=== PATIENT | female | born 1960 | race Caucasian/White ===

== ENCOUNTER → 2018-05-21 | Outpatient (CLI) | payer OTHER ==
[2014-11-10 09:37] VITALS: BMI 29.4
[~2018-05-21] MED LIST: ACET-1966 PO; ATOR20TA65 PO; ESCI5TAB10 PO; ESTR-28 PO; ESTR-63 TD; IBUP800T37 PO; LEVO50TA86 PO; MULT-1335 PO; PER PO; THYR15TA6 PO; VITA-200 PO; [UNRECOGNIZED DRUG - CODE] TD
--- NOTE | 2018-05-22 08:15 | RADIOLOGY IMAGING REPORT ---
FACILITY: [facility] PATIENT NAME: MESHA DUMONT : [id number] MR: [id number] V: [id number] EXAM DATE: ORDERING PHYSICIAN: CAROLINE BENEDICT TECHNOLOGIST: Saira Christopher PROCEDURE:BILATERAL DIGITAL SCREENING MAMMOGRAM WITH CAD ASSISTED INTERPRETATION & 3D TOMOSYNTHESIS COMPARISON:Prior mammograms 04/01/17, 03/28/16, 03/17/15, 03/10/13. INDICATIONS:SCREENING FINDINGS: There is scattered fibroglandular density seen throughout the breasts. The parenchymal pattern has remained stable allowing for difference in mammographic technique & patient positioning. DIAGNOSTIC CATEGORY 1--NEGATIVE. RECOMMENDATIONS: ROUTINE MAMMOGRAM AND CLINICAL EVALUATION. IMPRESSION: BIRADS 1: Negative. No significant abnormality is seen. Dictated by: Valencia Coppola M.D. on 05/21/2018 at 15:39 Transcribed by: MARY on 05/21/2018 at 15:59 Approved by: Valencia Coppola M.D. on 05/22/2018 at 8:14 [facility]
== END ==
LOC: MAMO 01:28
PROVIDERS: ATTEND Family Medicine
DX: Z12.31 Encounter for screening mammogram for malignant neoplasm of breast (principal)
CPT/HCPCS: 77063; 77067